=== PATIENT | male | born 1955 | race Caucasian/White ===

== ENCOUNTER 2016-11-05 20:02 | Observation (INO) ==
[2016-11-05] MEDS ORDERED: *HR* HYDROmorphone (PF) 1 MG/ML SYRINGE IVP ONE (20:44)
[2016-11-05] MEDS ORDERED: Ondansetron 4 MG/2 ML VIAL IVP ONE (20:44)
--- NOTE | 2016-11-05 20:47 | Emergency Department Note ---
Disposition Clinical Impression: Renal colic on left side, Kidney stone, Obstructive uropathy, History of treatment for malignancy, Vomiting, UTI (urinary tract infection), Elevated blood pressure reading Disposition: Admitted As Inpatient Forms: ED Satisfaction Letter, Work/School Release General Adult HPI - General Chief complaint: ED Abdominal Pain Stated complaint: kidney stones Time Seen by Provider: 11/05/16 20:09 Source: patient Limitations: no limitations - History of Present Illness HPI Narrative: 60-year-old male reports to the emergency department complaining of left flank pain radiating to the groin which started early this morning. [facility] and was diagnosed with a kidney stone approximately 7 mm, he reported they wanted to "take it out". He did not want them to proceed there and came back to his home area here, and reported to our ED for complaints of kidney stone pain. The patient denies any abdominal pain. No spinal pain or weakness or numbness in legs, no bowel or bladder problems. There is no history of weakness or numbness legs or bloody urine. No fevers cough runny nose or ear pain sore throat chest pain or syncope. There is no history of recent surgery or anticoagulant therapy. States he has a history of "cancer" and still has a port in place in his right chest. The patient denies any other complaints or concerns apart from flank pain. He complains of kidney stone pain. He has had some vomiting of nonbloody material no diarrhea. He has no history of aneurysm, there has been no syncope. Pain Scale: 10 - Related Data Home Medications Medication Instructions Recorded Confirmed Cholecalciferol (Vitamin D3) 1,000 unit PO DAILY 09/29/14 10/31/16 [Vitamin D] Ramipril [Altace] 2 tab PO DAILY 10/10/16 10/31/16 Previous Rx's Medication Instructions Recorded Potassium Chloride [K-Tab ER] 1 tab PO DAILY #90 tablet.er 06/18/15 Cyanocobalamin (B-12) [Vitamin B12] 1,000 mcg PO DAILY #30 tablet 09/11/15 Sildenafil Citrate [Viagra] 50 mg PO AD PRN #30 tablet 08/01/16 hydroCHLOROthiazide 12.5 mg PO DAILY #30 tablet 10/31/16 [Hydrochlorothiazide] Allergies Allergy/AdvReac Type Severity Reaction Status Date / Time No Known Allergies Allergy Verified 10/10/16 12:42 All systems ED: reviewed and negative except as stated. Past Medical History - Past Medical History Medical history: Reports: cancer, hyperlipidemia, hypertension Psychiatric history: Reports: no psych history - Social History Smoking Status: Never smoker Smokeless Tobacco Status: No Alcohol use: Reports: none Drug use: Reports: none Physical Exam - General Limitations: no limitations General appearance: alert, in no apparent distress - Head Head exam: atraumatic, normocephalic, normal inspection - Eye Eye exam: Present: normal appearance, PERRL, EOMI. Absent: scleral icterus, conjunctival injection - ENT ENT exam: normal exam, normal oropharynx, mucous membranes moist, TM's normal bilaterally, normal external ear exam - Neck Neck exam: Present: normal inspection, full ROM, trachea midline. Absent: tenderness - Chest Chest inspection: Present: symmetric chest wall rise. Absent: tenderness - Respiratory Respiratory exam: Present: normal lung sounds bilaterally. Absent: respiratory distress, wheezes, stridor, accessory muscle use, prolonged expiratory phase - Cardiovascular Cardiovascular exam: Present: regular rate, normal rhythm, normal heart sounds - Abdominal Exam Abdominal exam: Present: soft, Non-Tender, normal bowel sounds. Absent: tenderness, distention, guarding, rebound, rigidity, Loera's sign, Rovsing's sign, tenderness at McBurney's Point, pulsatile mass - Extremities Exam Extremities exam: Present: normal inspection, full ROM. Absent: tenderness, normal capillary refill, pedal edema, joint swelling, calf tenderness - Expanded Lower Extremity Exam Neurovascular/Tendon exam: Present: normal capillary refill. Absent: motor deficit, sensory deficit, tendon deficit, extremity cold to touch, pallor - Back Exam Back exam: Present: normal inspection, full ROM, CVA tenderness (L). Absent: tenderness, CVA tenderness (R), muscle spasm, paraspinal tenderness, vertebral tenderness - Neurological Exam Neurological exam: Present: alert, oriented X3, CN II-XII intact. Absent: motor sensory deficit - Psychiatric Psychiatric exam: Present: normal affect, normal mood - Skin Skin exam: Present: warm, dry, intact, normal color. Absent: rash, cyanosis, diaphoresis, erythema, pallor, mottled Course Vital Signs Temperature 97.8 F 11/05/16 20:04 Pulse Rate 77 11/05/16 20:04 Respiratory Rate 16 11/05/16 20:04 Blood Pressure 207/119 11/05/16 20:04 O2 Sat by Pulse Oximetry 100 11/05/16 20:04 Temperature 97.8 F 11/05/16 20:04 Pulse Rate 74 11/05/16 21:01 Respiratory Rate 20 11/05/16 21:01 Blood Pressure 162/104 11/05/16 21:01 O2 Sat by Pulse Oximetry 0 11/05/16 20:14 Oxygen Delivery Oxygen Delivery Room Air Medical Decision Making - MDM Narrative Medical decision making narrative: We obtained the patient's CT and laboratory results from the outlying facility, there is no indication of a 7 mm obstructive kidney stone on the left, the urinalysis showed significant white blood cells with bacteria. IV access was established here and Cipro was given IV. CBC and chem basic showed no major abnormalities per that institution. I discussed the case with our urologist Dr. Elder, he feels the patient would best be placed in the hospital and observed. He reports he can act as reporting process consultant and recommends primary medical admission. The patient was given pain control measures in the ED and appears to be comfortable. I discussed the case he hospitalist on-call who has accepted the patient to their care. - Lab Data Lab results reviewed: Yes I reviewed the patient's lab results. - Radiology Data Radiology results reviewed: Yes I reviewed the patient's radiology results.
[2016-11-05 22:41] LABS: Bilirubin,Urine Negative (Negative); Blood,Urine Small (Negative); Clarity,Urine Clear (Clear); Color,Urine Yellow (Yellow); Glucose,Urine (UA) Normal (Normal); Ketones,Urine Trace mg/dL (Negative); Leukocyte Esterase,Urine Small (Negative); Nitrite,Urine Negative (Negative); PH,Urine 5.5 pH Units (5.0-8.0); Protein,Urine Negative (Neg-Trace); Specific Gravity,Urine 1.021 (1.010-1.025); Urobilinogen,Urine Normal (Normal)
[2016-11-05 22:43] LABS: Bacteria,Urine None Seen per hpf (None-Few); Hyaline Casts,Urine None Seen per lpf (None-Few); Squamous Epithelial Cell,Urine Few per lpf (None-Few)
[2016-11-05] MEDS ORDERED: Ondansetron 4 MG/2 ML VIAL IVP PRN (23:19)
[2016-11-05] MEDS ORDERED: Naloxone 0.4 MG/ML INJ IVP PRN (23:19)
[2016-11-05] MEDS ORDERED: Acetaminophen 325 MG TABLET PO PRN (23:19)
--- NOTE | 2016-11-05 23:22 | Internal Med History&Physical ---
Date of Encounter: 11/06/16 Time of Encounter: 01:00 Assessment and Plan (1) Renal colic on left side Current visit: Yes Status: Acute Improving, continue IV fluids, continue present medications. Await urology evaluation. (2) Hypertension Current visit: Yes Status: Chronic Controlled, continue home medications. Qualifiers: Hypertension type: essential hypertension Qualified Code(s): I10 - Essential (primary) hypertension (3) Obstructive uropathy Current visit: Yes Status: Acute For intervention by urology. Keep nothing by mouth. (4) UTI (urinary tract infection) Current visit: Yes Status: Acute Complicated UTI with obstructive uropathy in a male patient Urinalysis from outside facility so shows positive leukocyte esterase and pyuria. Urine culture has been sent from here. Continue Rocephin 1 g daily Follow-up urinary culture Qualifiers: Urinary tract infection type: acute cystitis Hematuria presence: without hematuria Qualified Code(s): N30.00 - Acute cystitis without hematuria Internal Medicine - H&P: HPI Chief complaint: Flank pain Admitted From: Home Plans for Post Hospital Care: Home History of present illness: Mr. Fox is a 60 year old male with past medical history of follicular lymphoma on chemotherapy, hypertension, hyperlipidemia. Patient presented to an outside facility with flank pain and was found to have obstructive uropathy with nephrolithiasis and hydronephrosis At time will review his flank pain has significantly improved. Patient reports he has a known history of nephrolithiasis without intervention in the past. During his usual activity today, he developed right flank pain and presented to the ER where he was found to have left 7 mm obstructing ureteral stone as well as hydronephrosis. He denies suprapubic pain, he denies fever or chills. He reports some nausea without vomiting. He denies chest symptoms, respiratory symptoms, coronary neurologic symptoms. Other review of system is unremarkable. From referral center he had received 1 g of ceftriaxone, and was recommended for staple removal. However patient preferred [facility] was transferred here for further management. Urology has been consulted. Past Med Surg Social Fam HX - Past Medical History Medical history: cancer, hyperlipidemia, hypertension Psychiatric history: no psych history - Social History Smoking Status: Never smoker Smokeless Tobacco Status: No Alcohol use: none Drug use: none - Family History Mother Hx Family Cancer: Yes Father Hx Family Respiratory Disorders: Yes (EMPHYSEMA) Hx Family Cancer: Yes Internal Medicine - H&P: Meds Cholecalciferol (Vitamin D3) [Vitamin D] 1,000 unit PO BID 09/29/14 [History] hydroCHLOROthiazide [Hydrochlorothiazide] 12.5 mg PO DAILY #30 tablet 10/31/16 [ Rx] HYDROcodone/Acet 5/325 mg [[employer] 5-325 mg] 1 - 2 tab PO Q6H PRN 11/05/16 [ History] Multivitamin [Multi-Day Vitamins] 1 each PO DAILY 11/05/16 [History] Ondansetron ODT [Zofran ODT] 4 mg PO Q8H PRN 11/05/16 [History] Potassium Chloride [Klor-Con 10] 10 meq PO DAILY 11/05/16 [History] Sulfamethoxazole/Trimeth DS [Bactrim DS] 1 each PO BID 11/05/16 [History] Tamsulosin [Flomax] 0.4 mg PO DAILY 11/05/16 [History] 3 Allergy/AdvReac Type Severity Reaction Status Date / Time No Known Allergies Allergy Verified 10/10/16 12:42 All Systems PM: A 10-system review of systems was performed and is negative for pertinent findings except as documented above in the HPI. - Constitutional Constitutional: no chills, no fever(s), no night sweats - EENT Eyes: no change in vision, no discharge, no pain, no photophobia Ears: no ear discharge, no ear pain, no tinnitus Nose, mouth and throat: no dysphagia, no nasal discharge, no neck pain, no sore throat - Cardiovascular Cardiovascular ROS IM: no chest pain, no diaphoresis, no dyspnea, no lightheadedness, no palpitations, no syncope - Respiratory Respiratory: no cough, no dyspnea, no wheezing, no excessive phlegm production - Gastrointestinal Gastrointestinal: no abdominal pain, no diarrhea, no hematemesis, no hematochezia, no melena, no nausea, no vomiting - Genitourinary Genitourinary ROS male: flank pain - Musculoskeletal Musculoskeletal ROS IM: no numbness, no tingling - Integumentary Integumentary IM: no rash, no unusual bruising - Neurological Neurological ROS: no confusion, no convulsions, no focal weakness, no numbness, no tingling, no tremor(s) - Hematologic/Lymphatic Hematologic/Lymphatic: no easy bruising - Constitutional Vitals: Temp Pulse Resp BP Pulse Ox 97.8 F 51 20 146/90 0 11/05/16 22:42 11/05/16 22:06 11/05/16 22:42 11/05/16 22:42 11/05/16 20:14 General appearance: Present: A&O X 3, pleasant, no acute distress - Head Head exam: Present: atraumatic, normocephalic - Eye Eye exam: Present: PERRL, conjuntiva pink, sclera anicteric Pupils: Present: PERRL - Neck Neck exam general surgery: Present: supple, trachea midline. Absent: lymphadenopathy - Respiratory Respiratory exam: Present: CTAB. Absent: accessory muscle use, rales, rhonchi, wheezes Additional comments: R chest wall port-a-cath - Cardiovascular Cardiovascular exam: Present: RRR, +S1, +S2. Absent: diastolic murmur, gallop, rubs, systolic murmur - GI/Abdominal GI/Abdominal exam: Present: normal bowel sounds, soft, no peritoneal signs. Absent: distended, tenderness - Extremities Exam Extremities exam: Present: warm, radial pulses palpable and symmetrical. Absent : calf tenderness, cyanotic, pedal edema - Back Exam Back exam: Absent: CVA tenderness (L), CVA tenderness (R) - Neurological Exam Neurological exam: Present: alert, CN II-XII intact, oriented X3, no focal deficits. Absent: pronater drift, facial droop, speech deficit - Skin Skin exam: Present: dry, intact Internal Med - H&P Results - Labs Labs: Urine 11/05/16 Range/Units 22:30 Urine Color Yellow (Yellow) Urine Clarity Clear (Clear) Urine pH 5.5 (5.0-8.0) pH Units Ur Specific [place] 1.021 (1.010-1.025) Urine Protein Negative (Neg-Trace) mg/dL Urine Glucose (UA) Normal (Normal) mg/dL
[2016-11-05] MEDS: *HR* HYDROcodone/Acet 5/325 mg TABLET PO PRN (23:50)
[2016-11-05] MEDS: 0.9 % Sodium Chloride 1,000 ML IVC SCH (23:50)
[2016-11-06] MEDS: *HR* Morphine 2 MG/ML SYRINGE IVP PRN ×4 (03:31→16:09)
[2016-11-06 04:01] LABS: Basophils # 0.1 K/mcL (0.0-0.2); Basophils % 0.4 %; Eosinophils # 0.1 K/mcL (0.0-0.6); Eosinophils % 0.4 %; Hemoglobin 13.7 g/dL (12.9-16.9); Immature Granulocytes % 0.4 % (0-4); Lymphocytes # 0.8 K/mcL (0.6-4.6); Lymphocytes % 5.4 %; Mean Corpuscular HGB Conc 33.4 g/dL (31.6-35.5); Mean Corpuscular Hemoglobin 31.1 pg (28.0-33.3); Monocytes # 0.8 K/mcL (0.0-1.3); Monocytes % 5.8 %; Neutrophils # 12.2 K/mcL (1.6-8.9); Platelet Count 185 K/mcL (140-400); Red Blood Count 4.41 M/mcL (4.19-5.50); Red Cell Distribution Width 12.4 % (11.5-14.5); Segmented Neutrophils % 87.6 %
[2016-11-06 04:02] LABS: BUN/Creatinine Ratio 16 (6-26); Blood Urea Nitrogen 18 mg/dL (8-26); Calcium 9.1 mg/dL (8.6-10.8); Carbon Dioxide 21 mEq/L (19-29); Chloride 104 mEq/L (98-109); Glucose 127 mg/dL (70-99); Osmolality,Calculated 285 (280-300); Potassium 4.2 mEq/L (3.5-4.5); Sodium 136 mEq/L (136-145); eGFR For African Americans > 60 (> 60); eGFR For Non-African Americans > 60 (> 60)
[2016-11-06] MEDS: *HR* HYDROcodone/Acet 5/325 mg TABLET PO PRN (06:03)
--- NOTE | 2016-11-06 07:28 | Urology - Consult Note ---
Date of Encounter: 11/06/16 Time of Encounter: 07:26 - Assessment and Plan (1) Kidney stone Current Visit: Yes Status: Acute Assessment and plan: 60-year-old man with a left proximal ureteral stone and concern for urinary tract infection. He has been on IV antibiotic. I recommend proceeding with a cystoscopy and left ureteral stent placement. He was informed of the risks of the surgery which include but are not limited to bleeding, infection, injury to structures, need for further procedures, and the risk of anesthesia. He is willing to proceed. (2) UTI (urinary tract infection) Current Visit: Yes Status: Acute Assessment and plan: We will continue IV antibiotics. We'll follow-up on the results of his urine culture. Qualifiers: Urinary tract infection type: acute cystitis Hematuria presence: without hematuria Qualified Code(s): N30.00 - Acute cystitis without hematuria Urology CN:HPI Consult date: 11/06/16 Reason for consult Urology: Other (Left ureteral stone) Requesting physician: Ubaldo Grissom History of present illness: 60-year-old man presents with a history of left flank pain. The pain started yesterday. He says it was sharp and radiated to his groin. He went to an outside emergency room and a report from a CT scan described a left 7 mm and a 3 millimeter proximal ureteral stone. He then came to [facility] and was admitted. There was concern for urinary tract infection. He has a history of lymphoma. He has never had a stone before. Currently his pain is starting to come back. He denies any fevers. Past Med Surg Social Fam HX - Past Medical History Medical history: cancer, hyperlipidemia, hypertension Psychiatric history: no psych history - Social History Smoking Status: Never smoker Smokeless Tobacco Status: No Alcohol use: none Drug use: none - Family History Mother Hx Family Cancer: Yes Father Hx Family Respiratory Disorders: Yes (EMPHYSEMA) Hx Family Cancer: Yes Medications and Allergies Cholecalciferol (Vitamin D3) [Vitamin D] 1,000 unit PO BID 09/29/14 [History] hydroCHLOROthiazide [Hydrochlorothiazide] 12.5 mg PO DAILY #30 tablet 10/31/16 [ Rx] HYDROcodone/Acet 5/325 mg [[place] 5-325 mg] 1 - 2 tab PO Q6H PRN 11/05/16 [ History] Multivitamin [Multi-Day Vitamins] 1 each PO DAILY 11/05/16 [History] Ondansetron ODT [Zofran ODT] 4 mg PO Q8H PRN 11/05/16 [History] Potassium Chloride [Klor-Con 10] 10 meq PO DAILY 11/05/16 [History] Sulfamethoxazole/Trimeth DS [Bactrim DS] 1 each PO BID 11/05/16 [History] Tamsulosin [Flomax] 0.4 mg PO DAILY 11/05/16 [History] 3 Allergy/AdvReac Type Severity Reaction Status Date / Time No Known Allergies Allergy Verified 10/10/16 12:42 Review of Systems - Constitutional no chills, no fever(s) - EENT Nose, mouth and throat: no dizziness - Cardiovascular no chest pain - Respiratory no dyspnea - Gastrointestinal no nausea, no vomiting - Genitourinary flank pain, no hematuria - Musculoskeletal no back pain - Integumentary no erythema, no rash - Neurological no weakness - Psychiatric no suicidal ideation - Hematologic/Lymphatic no easy bleeding - Allergic/Immunologic no wheezing Exam Initial Vital Signs Temp Pulse Resp BP Pulse Ox 97.8 F 77 16 207/119 100 11/05/16 20:04 11/05/16 20:04 11/05/16 20:04 11/05/16 20:04 11/05/16 20:04 - General physical appearance Present: well developed, well nourished, no distress - Eyes Absent: icteric - ENT Present: normal nares - Neck Present: trachea midline - Respiratory Present: normal respiratory effort - Cardiovascular Cardiovascular exam IM: RRR - Abdomen Abdomen: Present: soft Urology Results - Labs 11/06/16 03:35 11/06/16 03:35 Abnormal lab results WBC 13.9 K/mcL (4.3-11.1) H D 11/06/16 03:35 Neutrophils # 12.2 K/mcL (1.6-8.9) H 11/06/16 03:35 Glucose 127 mg/dL (70-99) H 11/06/16 03:35 Urine Ketones Trace mg/dL (Negative) H 11/05/16 22:30 Urine Blood Small (Negative) H 11/05/16 22:30 Ur Leukocyte Esterase Small (Negative) H 11/05/16 22:30 Urine Microscopic RBC 3-5 per hpf (0-3) H 11/05/16 22:30 Urine Microscopic WBC 5-15 per hpf (0-3) H 11/05/16 22:30 Ur Culture Indicated? YES (NO) A 11/05/16 22:30 Diabetes panel 11/06/16 Range/Units 03:35 Sodium 136 (136-145) mEq/L Potassium 4.2 (3.5-4.5) mEq/L Chloride 104 (98-109) mEq/L Carbon Dioxide 21 (19-29) mEq/L BUN 18 (8-26) mg/dL Creatinine 1.16 (0.72-1.25) mg/dL Glucose 127 H (70-99) mg/dL Calcium 9.1 (8.6-10.8) mg/dL Calcium panel 11/06/16 Range/Units 03:35 Calcium 9.1 (8.6-10.8) mg/dL Pituitary panel 11/06/16 Range/Units 03:35 Sodium 136 (136-145) mEq/L Potassium 4.2 (3.5-4.5) mEq/L Chloride 104 (98-109) mEq/L Carbon Dioxide 21 (19-29) mEq/L BUN 18 (8-26) mg/dL Creatinine 1.16 (0.72-1.25) mg/dL Glucose 127 H (70-99) mg/dL Calcium 9.1 (8.6-10.8) mg/dL Adrenal panel 11/06/16 Range/Units 03:35 Sodium 136 (136-145) mEq/L Potassium 4.2 (3.5-4.5) mEq/L Chloride 104 (98-109) mEq/L Carbon Dioxide 21 (19-29) mEq/L BUN 18 (8-26) mg/dL Creatinine 1.16 (0.72-1.25) mg/dL Glucose 127 H (70-99) mg/dL Calcium 9.1 (8.6-10.8) mg/dL All other labs normal. - Imaging CT scan - abdomen: report reviewed CT scan - pelvis: report reviewed Consult Discharge Plan - Plan Referrals: NONE,PCP [Primary Care Provider] -
[2016-11-06] MEDS ORDERED: Multivit/Ca/Min/Fe/FA 1 TAB TABLET PO SCH (09:00)
[2016-11-06] MEDS ORDERED: Cholecalciferol (D-3) 1,000 UNIT TABLET PO SCH (09:00)
[2016-11-06] MEDS ORDERED: hydroCHLOROthiazide 25 MG TABLET PO SCH (09:00)
[2016-11-06] MEDS: 0.9 % Sodium Chloride 1,000 ML IVC SCH (12:06)
--- NOTE | 2016-11-06 16:09 | Internal Med Progress Note ---
Date of Encounter: 11/06/16 Time of Encounter: 10:25 - Assessment and plan (1) Renal colic on left side Current Visit: Yes Status: Acute Assessment and plan: With left UPJ/proximal ureter stone. Urology has been consulted. Plan for cystoscopy and stent placement later today. Continue supportive care and pain control. Continue IV hydration. Moderate risk for complications. (2) Hypertension Current Visit: Yes Status: Chronic Assessment and plan: Uncontrolled. Has been persistently elevated. Will add beta bambi to patient 's antihypertensive regimen Qualifiers: Hypertension type: essential hypertension Qualified Code(s): I10 - Essential (primary) hypertension (3) Obstructive uropathy Current Visit: Yes Status: Acute Assessment and plan: Follow renal function closely. Currently normal. (4) UTI (urinary tract infection) Current Visit: Yes Status: Acute Assessment and plan: Being treated with Rocephin. Will follow urine culture results. Qualifiers: Urinary tract infection type: acute cystitis Hematuria presence: without hematuria Qualified Code(s): N30.00 - Acute cystitis without hematuria - Subjective Interval history: Patient complains of left flank pain. Improved compared to yesterday. Denies any dysuria or hematuria. Awaiting cystoscopy planned for later today. - Constitutional Vitals: Temp Pulse Resp BP Pulse Ox 98.3 F 92 15 166/95 96 11/06/16 15:52 11/06/16 15:52 11/06/16 15:52 11/06/16 15:52 11/06/16 15:52 General appearance: Present: A&O X 3, pleasant, no acute distress, answers questions appropriately - Neck Neck exam general surgery: Present: supple, trachea midline. Absent: lymphadenopathy - Respiratory Respiratory exam: Present: CTAB. Absent: accessory muscle use, rales, rhonchi, wheezes - Cardiovascular Cardiovascular exam: Present: RRR, +S1, +S2. Absent: diastolic murmur, gallop, rubs, systolic murmur - GI/Abdominal GI/Abdominal exam: Present: normal bowel sounds, soft, no peritoneal signs. Absent: distended, tenderness - Back Exam Back exam: Present: CVA tenderness (L) - Neurological Exam Neurological exam: Present: CN II-XII intact, oriented X3, no focal deficits. Absent: facial droop, speech deficit - Skin Skin exam: Present: dry, intact Internal Medicine: Result - Labs CBC & Chem 7: 11/06/16 03:35 11/06/16 03:35 Labs: Short CBC 11/06/16 Range/Units 03:35 WBC 13.9 H D (4.3-11.1) K/mcL Hgb 13.7 (12.9-16.9) g/dL Hct 41.0 (37.5-50.1) % Plt Count 185 (140-400) K/mcL Neutrophils # 12.2 H (1.6-8.9) K/mcL BMP 11/06/16 03:35 Sodium 136 Potassium 4.2 Chloride 104 Carbon Dioxide 21 BUN 18 Creatinine 1.16 Glucose 127 H Calcium 9.1 Urine 11/05/16 Range/Units 22:30 Urine Color Yellow (Yellow) Urine Clarity Clear (Clear) Urine pH 5.5 (5.0-8.0) pH Units Ur Specific [place] 1.021 (1.010-1.025) Urine Protein Negative (Neg-Trace) mg/dL Urine Glucose (UA) Normal (Normal) mg/dL - Impressions Impressions KUB X-Ray 11/06/16 07:29 IMPRESSION: 1. 0.6 x 0.7 cm calculus in the region of the left UPJ/proximal ureter. 2. Bowel gas and stool overlying the bilateral renal fossa limiting evaluation for nephrolithiasis. D/ / 11/06/2016 08:31:14 Jose Griffin MD / [email or web address] Interpreting Provider: Jose Griffin MD Retroperitoneum Ultrasound 11/06/16 15:00 IMPRESSION: No hydronephrosis. Echogenic foci within the kidneys bilaterally likely representing nonobstructing stones. Patient could not void. Prostate is enlarged. D/ / Carrie Escudero MD / Carrie Escudero MD Interpreting Provider: Carrie Escudero MD Consult Discharge Plan - Plan Referrals: [facility] [Other] (Chemo) NONE,PCP [Primary Care Provider] -
--- NOTE | 2016-11-06 16:22 | Anesthesia Evaluation PreOp ---
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: Denies Any Significant HX Other Medical History: Other (Lymphoma) Anesthesia History: No Prior Anesthetic Complications, Past Anesthesia Alcohol Use: none Drug use: none Medications and Allergies Cholecalciferol (Vitamin D3) [Vitamin D] 1,000 unit PO BID 09/29/14 [History] hydroCHLOROthiazide [Hydrochlorothiazide] 12.5 mg PO DAILY #30 tablet 10/31/16 [ Rx] HYDROcodone/Acet 5/325 mg [[place] 5-325 mg] 1 - 2 tab PO Q6H PRN 11/05/16 [ History] Multivitamin [Multi-Day Vitamins] 1 each PO DAILY 11/05/16 [History] Ondansetron ODT [Zofran ODT] 4 mg PO Q8H PRN 11/05/16 [History] Potassium Chloride [Klor-Con 10] 10 meq PO DAILY 11/05/16 [History] Sulfamethoxazole/Trimeth DS [Bactrim DS] 1 each PO BID 11/05/16 [History] Tamsulosin [Flomax] 0.4 mg PO DAILY 11/05/16 [History] 3 Allergy/AdvReac Type Severity Reaction Status Date / Time No Known Allergies Allergy Verified 10/10/16 12:42 - Meds/Allergy Pre-op Review Medications Reviewed: Yes Allergies Reviewed: Yes Beta Blockers on Current Med List: No Anesthesia Results - Labs 11/06/16 03:35 11/06/16 03:35 Anesthesia Exam O2 Sat Height 1.68 m Weight 72.348 kg Weight 72.575 kg O2 Sat by Pulse Oximetry 96 O2 Sat by Pulse Oximetry 95 O2 Sat by Pulse Oximetry 0 O2 Sat by Pulse Oximetry 100 Vital Signs Temp Pulse Resp BP Pulse Ox 97.8 F 77 16 207/119 100 11/05/16 20:04 11/05/16 20:04 11/05/16 20:04 11/05/16 20:04 11/05/16 20:04 Height: 5'6'' Weight: 159# NPO (# of Hours): > 8 hrs - HEENT Pupil (Motor): Pupils equal, EOMI Mallampati: III Teeth: Normal Oral Opening: Greater than 3 - 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
[2016-11-06] MEDS ORDERED: *HR* Propofol 200 MG/20 ML VIAL IVP ONE (16:57)
[2016-11-06] MEDS ORDERED: *HR* Midazolam HCl 2 MG/2 ML VIAL ONE (16:58)
[2016-11-06] MEDS ORDERED: *HR* FentaNYL (PF) 100 MCG/2 ML VIAL ONE (16:58)
[2016-11-06] MEDS ORDERED: Ondansetron 4 MG/2 ML VIAL ONE (16:58)
[2016-11-06] MEDS ORDERED: Lidocaine -MPF 2% 2 ML VIAL ONE (16:58)
[2016-11-06] MEDS ORDERED: Dexamethasone 4 MG/ML VIAL ONE (16:58)
--- NOTE | 2016-11-06 17:03 | Operative Note ---
Date of procedure: 11/06/16 Pre-op diagnosis: Left ureteral stone Post-op diagnosis: same Procedure: Insert cystoscopy, left ureteral stent placement. Implants: 6 Polish x 26cm JJ stent. Complications: None. Anesthesia: JENNY Surgeon: Mehran Elder Estimated blood loss (cc): 1 Specimen: None Condition: stable Disposition: PACU Procedure in Detail: Indications: Mr. Fox is a 60-year-old male who has a history of nephrolithiasis. He had a CT which showed a left proximal ureteral stone. There was concern for urinary tract infection. He elected to undergo a cystoscopy and left ureteral stent placement. He was aware of the risks of the procedure including but not limited to bleeding, infection, injury to other structures, need for further procedures, stent irritation, need for nephrostomy tube, need for open repair, risks otherwise unforeseen, and the risk of anesthesia. He is willing to proceed. Procedure in Detail: After informed consent was obtained the patient was brought back to the operating room and placed in supine position. A time out was performed. General anesthesia was administered and an LMA was placed. He was then placed in the lithotomy position. He was prepped and draped in the usual sterile fashion. Cystoscopy was performed. The anterior urethra was normal. There was no evidence of bladder tumors. The ureteral orifices were in the normal orthotopic position. There was no duplication of the ureteral orifices. The Zip wire was placed in the left ureteral orifice. The wire was then brought up into the kidney under fluoroscopic guidance. A 6 Polish by 26cm JJ stent was then placed. The dangle strings were removed. The bladder was drained. The patient was then awakened from general anesthesia and brought to recovery room in good condition. All sponge, needle, and instrument counts were correct.
[2016-11-06] MEDS ORDERED: *HR* Promethazine 25 MG/ML VIAL IVP PRN (17:28)
[2016-11-06] MEDS ORDERED: *HR* HYDROmorphone (PF) 1 MG/ML SYRINGE IVP PRN (17:28)
--- NOTE | 2016-11-06 18:12 | Anesthesia Evaluation Post Op ---
Date of Encounter: 11/06/16 Time of Encounter: 18:10 - Vital Signs Vital Signs: Vital Signs/O2 Sat/Glucose, Most Current Temp Pulse Resp BP Pulse Ox 11/06/16 18:06 98.5 F 86 16 126/77 94 11/06/16 17:56 77 20 96 11/06/16 17:46 71 18 98/59 96 11/06/16 17:36 98.9 F 75 18 109/65 96 11/06/16 16:32 96 15 171/105 97 11/06/16 15:52 98.3 F 92 15 166/95 96 - Lungs Lungs: Clear Ascult./Percussion - Airway Airway: Non-obstructed - Cardiovascular Regular Rate - Mental Status Mental Status: Alert & Oriented, Answers Appropriately - Pain Pain Scale: 0 - Nausea Vomiting Nausea Vomiting: Not Present - Hydration Hydration: Ice chips, Has not voided - Discharge PostOp Status: Transfer Patient to floor
[2016-11-06] MEDS ORDERED: Naloxone 0.4 MG/ML INJ IVP PRN (18:54)
[2016-11-06] MEDS ORDERED: *HR* OxyCODONE/APAP 5/325 TABLET PO PRN (18:54)
[2016-11-06] MEDS ORDERED: *HR* Morphine 2 MG/ML SYRINGE IVP PRN (18:54)
[2016-11-06] MEDS ORDERED: 0.9 % Sodium Chloride 1,000 ML IVC SCH (18:54)
[2016-11-06] MEDS ORDERED: Ondansetron 4 MG/2 ML VIAL IVP PRN (18:54)
[2016-11-06] MEDS ORDERED: *HR* HYDROcodone/Acet 5/325 mg TABLET PO PRN (18:54)
[2016-11-06] MEDS ORDERED: Acetaminophen 325 MG TABLET PO PRN (18:54)
[2016-11-06] MEDS: Cholecalciferol (D-3) 1,000 UNIT TABLET PO SCH (21:05)
[2016-11-07 05:33] LABS: Eosinophils % 0.1 %; Hematocrit 36.3 % (37.5-50.1); Immature Granulocytes % 0.5 % (0-4); Lymphocytes # 0.6 K/mcL (0.6-4.6); Lymphocytes % 5.4 %; Mean Corpuscular HGB Conc 33.3 g/dL (31.6-35.5); Mean Corpuscular Hemoglobin 30.9 pg (28.0-33.3); Mean Corpuscular Volume 92.8 fL (83.0-100.0); Mean Platelet Volume 10.3 fL (9.4-12.4); Monocytes # 0.5 K/mcL (0.0-1.3); Monocytes % 4.9 %; Neutrophils # 9.5 K/mcL (1.6-8.9); Platelet Count 161 K/mcL (140-400); Red Blood Count 3.91 M/mcL (4.19-5.50); Red Cell Distribution Width 12.6 % (11.5-14.5); Segmented Neutrophils % 89.1 %
[2016-11-07 05:35] LABS: Hemoglobin 12.1 g/dL (12.9-16.9)
[2016-11-07 05:59] LABS: BUN/Creatinine Ratio 20 (6-26); Blood Urea Nitrogen 21 mg/dL (8-26); Carbon Dioxide 21 mEq/L (19-29); Chloride 108 mEq/L (98-109); Glucose 109 mg/dL (70-99); Osmolality,Calculated 294 (280-300); Potassium 4.2 mEq/L (3.5-4.5); Sodium 140 mEq/L (136-145); eGFR For African Americans > 60 (> 60); eGFR For Non-African Americans > 60 (> 60)
[2016-11-07] MEDS: Cholecalciferol (D-3) 1,000 UNIT TABLET PO SCH (08:36)
[2016-11-07] MEDS ORDERED: hydroCHLOROthiazide 25 MG TABLET PO SCH (09:00)
[2016-11-07] MEDS ORDERED: Multivit/Ca/Min/Fe/FA 1 TAB TABLET PO SCH (09:00)
--- NOTE | 2016-11-07 09:18 | Urology Progress Note ---
Date of Encounter: 11/07/16 Time of Encounter: 09:16 - Assessment and Plan (1) Kidney stone Current Visit: Yes Status: Acute Assessment and plan: s/p left ureteral stent placement. POD #1. 1. Will plan on left ureteroscopy, laser and stent placement as an outpatient. 2. Okay to d/c home today. (2) UTI (urinary tract infection) Current Visit: Yes Status: Acute Assessment and plan: Transition to oral medications. Culture negative. Consider bactrim, cipro, or cephalosporin. Qualifiers: Urinary tract infection type: acute cystitis Hematuria presence: without hematuria Qualified Code(s): N30.00 - Acute cystitis without hematuria Progress Note Narrative: Doing well after left ureteral stent placement. No fevers overnight. Pain is improved. Objective Initial Vital Signs Temp Pulse Resp BP Pulse Ox 97.8 F 77 16 207/119 100 11/05/16 20:04 11/05/16 20:04 11/05/16 20:04 11/05/16 20:04 11/05/16 20:04 - General physical appearance Present: well developed, well nourished, no distress - Respiratory Present: normal respiratory effort - Abdomen Present: soft - Labs 11/07/16 04:15 11/07/16 04:15 Diabetes panel 11/07/16 Range/Units 04:15 Sodium 140 (136-145) mEq/L Potassium 4.2 (3.5-4.5) mEq/L Chloride 108 (98-109) mEq/L Carbon Dioxide 21 (19-29) mEq/L BUN 21 (8-26) mg/dL Creatinine 1.06 (0.72-1.25) mg/dL Glucose 109 H (70-99) mg/dL Calcium 9.0 (8.6-10.8) mg/dL Calcium panel 11/07/16 Range/Units 04:15 Calcium 9.0 (8.6-10.8) mg/dL Pituitary panel 11/07/16 Range/Units 04:15 Sodium 140 (136-145) mEq/L Potassium 4.2 (3.5-4.5) mEq/L Chloride 108 (98-109) mEq/L Carbon Dioxide 21 (19-29) mEq/L BUN 21 (8-26) mg/dL Creatinine 1.06 (0.72-1.25) mg/dL Glucose 109 H (70-99) mg/dL Calcium 9.0 (8.6-10.8) mg/dL Adrenal panel 11/07/16 Range/Units 04:15 Sodium 140 (136-145) mEq/L Potassium 4.2 (3.5-4.5) mEq/L Chloride 108 (98-109) mEq/L Carbon Dioxide 21 (19-29) mEq/L BUN 21 (8-26) mg/dL Creatinine 1.06 (0.72-1.25) mg/dL Glucose 109 H (70-99) mg/dL Calcium 9.0 (8.6-10.8) mg/dL - VTE Documentation of Mechanical Device: Intermittent pneumatic compression device Consult Discharge Plan - Plan Referrals: [facility] [Other] (Chemo) NONE,PCP [Primary Care Provider] -
[2016-11-07 10:28] VITALS: BP 147/81
--- NOTE | 2016-11-07 11:16 | Discharge Summary ---
Date of Encounter: 11/07/16 Time of Encounter: 10:25 - Discharge Diagnosis (1) Renal colic on left side Priority: Primary Status: Acute (2) Hypertension Priority: Secondary Status: Chronic Qualifiers: Hypertension type: essential hypertension Qualified Code(s): I10 - Essential (primary) hypertension (3) Obstructive uropathy Priority: Secondary Status: Acute (4) UTI (urinary tract infection) Priority: Secondary Status: Acute Qualifiers: Urinary tract infection type: acute cystitis Hematuria presence: without hematuria Qualified Code(s): N30.00 - Acute cystitis without hematuria - Discharge Medications Prescriptions: Ciprofloxacin [Cipro] 500 mg PO BID #14 tablet Home Medications: Cholecalciferol (Vitamin D3) [Vitamin D3] 1,000 unit PO BID 09/29/14 [History] hydroCHLOROthiazide [Hydrochlorothiazide] 12.5 mg PO DAILY #30 tablet 10/31/16 [ Rx] HYDROcodone/Acet 5/325 mg [[place] 5-325 mg] 1 - 2 tab PO Q6H PRN 11/05/16 [ History] Multivitamin [Multi-Day Vitamins] 1 each PO DAILY 11/05/16 [History] Ondansetron ODT [Zofran ODT] 4 mg PO Q8H PRN 11/05/16 [History] Potassium Chloride [Klor-Con 10] 10 meq PO DAILY 11/05/16 [History] Tamsulosin [Flomax] 0.4 mg PO DAILY 11/05/16 [History] Ciprofloxacin [Cipro] 500 mg PO BID #14 tablet 11/07/16 [Rx] Allergies/Adverse Reactions: 3 Allergy/AdvReac Type Severity Reaction Status Date / Time No Known Allergies Allergy Verified 10/10/16 12:42 Procedures/tests Complete & Pending: Procedures Performed prior 72 hours Category Date Time Status Retroperitoneal Ultrasound - Complete [US Exams 11/06/16 15:00 Completed retroperitoneal comp] [US] Routine Date of admission: 11/05/16 22:28 Primary care physician: PCP NONE Consults: 11/05/16 21:53 Consult to Urology [CONS] Stat Consulting Provider: [facility] Reason for Consult: Obstructive uropathy, UTI Dr. Elder Time Notified: 21:54 Call Completed: Yes Discharging clinician: Lorena Harkins Anticipated date of discharge: 09/22/17 - Patient Status Disposition: Home, Self-Care Condition: Good Functional capacity at discharge: independent ambulation Overall status at discharge: patient is progressing back to baseline - Discharge Instructions Instructions: Kidney Stones (DC), Chronic Hypertension (DC), Ureteral Stent Placement (DC) Follow Up With: [facility] [Other] (Chemo) Mehran Elder MD [Partnered Physician] - 11/13/16 3:50 pm (in 1-2 weeks) NONE,PCP [Primary Care Provider] - - Diet and Activity Activity: increase activity as tolerated Diet: low fat, low cholesterol, low salt diet Hospital course: Mr. 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 He was found to have obstructive uropathy with nephrolithiasis and hydronephrosis. He was therefore transferred here for urologic evaluation. He did have leukocytosis on presentation and was started on treatment with antibiotics and IV fluids. He was evaluated by urology and underwent cystoscopy with left ureteral stent placement. Since then his pain has significantly improved. He is now stable for discharge home and was follow up with urology as outpatient. He will also complete a short course of antibiotic therapy with ciprofloxacin. - Time Spent with Patient Total time spent providing and/or coordinating discharge services: Less than 30 minutes (25 min) - Constitutional Vitals: Temp Pulse Resp BP Pulse Ox 98.3 F 78 15 147/81 95 11/07/16 10:27 11/07/16 10:27 11/07/16 10:27 11/07/16 10:27 11/07/16 10:27 General appearance: Present: A&O X 3, pleasant, no acute distress, answers questions appropriately - Neck Neck exam general surgery: Present: supple, trachea midline. Absent: lymphadenopathy - Cardiovascular Cardiovascular exam: Present: RRR, +S1, +S2. Absent: diastolic murmur, gallop, rubs, systolic murmur - GI/Abdominal GI/Abdominal exam: Present: normal bowel sounds, soft, no peritoneal signs. Absent: distended, tenderness - Extremities Exam Extremities exam: Present: warm, radial pulses palpable and symmetrical. Absent : calf tenderness, cyanotic, pedal edema - Neurological Exam Neurological exam: Present: alert, oriented X3, no focal deficits. Absent: facial droop, speech deficit - VTE Documentation of Mechanical Device: Intermittent pneumatic compression device
== END 2016-11-07 15:01 | disposition home or self-care (01) ==
LOC: 3ANU 20:02 → EMEROO 20:02 → 3ANU 22:45
PROVIDERS: ADMIT Internal Medicine; ATTEND Internal Medicine